=== PATIENT | female | born 1980 | race Caucasian/White ===

== ENCOUNTER 2020-12-10 16:30 | Emergency (ER) | payer SELFPAY ==
[~2020-12-10] VITALS: Ht 160 cm; Wt 95.4 kg
[2020-12-10 17:37] LABS: BASO # 0.1 x10^3/uL (0.0-0.2); BASO % 1 % (0-3); EOS # 0.3 x10^3/uL (0.0-0.7); EOS % 3 % (0-3); HEMATOCRIT 44.4 % (36.0-47.0); HEMOGLOBIN 15.2 g/dL (12.0-15.5); LYMPH # 3.3 x10^3/uL (1.0-4.8); LYMPH % 40 % (24-48); MEAN CORPUSCULAR HEMOGLOBIN 30 pg (25-35); MEAN CORPUSCULAR HGB CONC 34 g/dL (31-37); MEAN CORPUSCULAR VOLUME 88 fL (79-100); MONO # 0.9 x10^3/uL (0.0-1.1); MONO % 10 % (0-9); NEUT # 3.8 x10^3/uL (1.8-7.7); NEUT % 46 % (31-73); PLATELET COUNT 289 x10^3/uL (140-400); RED BLOOD COUNT 5.06 x10^6/uL (3.50-5.40); RED CELL DISTRIBUTION WIDTH 14.2 % (11.5-14.5); WHITE BLOOD COUNT 8.3 x10^3/uL (4.0-11.0)
--- NOTE | 2020-12-10 17:44 | RAD ---
EXAMINATION: Chest radiograph. VIEWS: Single view COMPARISON: None INDICATION:40 years, Female, chest pain. FINDINGS: Normal cardiomediastinal silhouette. No focal consolidation. No pleural effusion or pneumothorax. No acute osseous process. IMPRESSION: No acute cardiopulmonary process. Electronically signed by: Surendra Yancey MD (12/10/2020 5:42 PM) [facility]
[2020-12-10 17:52] LABS: CALCIUM 9.2 mg/dL (8.5-10.1); GFR 62.1; POTASSIUM 4.1 mmol/L (3.5-5.1)
[2020-12-10 17:57] LABS: ALBUMIN 3.8 g/dL (3.4-5.0); ALBUMIN/GLOBULIN RATIO 1.1 (1.0-1.7); MAGNESIUM 1.7 mg/dL (1.8-2.4); TOTAL BILIRUBIN 0.3 mg/dL (0.2-1.0); TOTAL PROTEIN 7.2 g/dL (6.4-8.2)
[2020-12-10] MEDS ORDERED: IV NORMAL SALINE 1000ML BAG 1,000 ML IV ONE (18:00)
[2020-12-10] MEDS ORDERED: fentaNYL PF VIAL 100 MCG/2 ML VIAL IVP ONE (18:00)
--- NOTE | 2020-12-10 19:11 | PHYS DOC ---
Past Medical History Additional Past Medical Histor: PCOS,PERICARDITIS Past Surgical History: No Surgical History Smoking Status: Never Smoker Alcohol Use: Occasionally General Adult EDM: Chief Complaint: CHEST PAIN HPI: HPI: Patient is a 40 year old female who presents with 2 weeks of bilateral jaw pain that is sharp and then it radiates down into her chest and her chest it feels very heavy. She states she also has a cough. She states she is not really doing anything all the ordinary when this occurs. She says it does not occur every day the last 2 weeks. She states that usually last about 20 to 30 minutes. She states she thought maybe it was just anxiety. Patient states she does have anxiety and depression of which she is on medication for. Currently rating her chest discomfort only at a 7 out of 10. She is not currently have any jaw pain. She denies headache, dizziness, nausea, vomiting, diarrhea, vision change, shortness of breath, fever, abdominal pain, injury, any heavy lifting, numbness or tingling. Patient has a history of PCOS also and pericarditis. Review of Systems: Review of Systems: Constitutional: Denies fever or chills. [] Eyes: Denies change in visual acuity. [] HENT: Denies nasal congestion or sore throat. + Bilateral jaw pain [] Respiratory: +cough or denies shortness of breath. [] Cardiovascular: + chest pain or denies edema. [] GI: Denies abdominal pain, nausea, vomiting, bloody stools or diarrhea. [] : Denies dysuria. [] Musculoskeletal: Denies back pain or joint pain. [] Integument: Denies rash. [] Neurologic: Denies headache, focal weakness or sensory changes. [] Endocrine: Denies polyuria or polydipsia. [] Lymphatic: Denies swollen glands. [] Psychiatric: Denies depression or anxiety. [] Heart Score: C/O Chest Pain: Yes HEART Score for Chest Pain: HEART Score for Chest Pain Response (Comments) Value History Slighlty/Non-Suspicious 0 ECG Nonspecific Repolarizatio 1 Age < 45 0 Risk Factors 1 or 2 Risk Factors 1 Troponin < Normal Limit 0 Total 2 Risk Factors: Risk Factors: DM, Current or recent (<one month) smoker, HTN, HLP, family history of CAD, obesity. Risk Scores: Score 0 - 3: 2.5% MACE over next 6 weeks - Discharge Home Score 4 - 6: 20.3% MACE over next 6 weeks - Admit for Clinical Observation Score 7 - 10: 72.7% MACE over next 6 weeks - Early Invasive Strategies Current Medications: Current Medications Medications (Trade) Dose Ordered Sig/Amrit Start Time Stop Time Status Last Admin Dose Admin Fentanyl Citrate (Fentanyl 2ml Vial) 50 mcg 1X ONCE 12/10/20 18:00 12/10/20 18:01 DC Sodium Chloride 1,000 ml @ 1,000 mls/hr 1X ONCE 12/10/20 18:00 12/10/20 18:59 Allergies: Allergies: Allergies Coded Allergies Type Severity Reaction Last Updated Verified amoxicillin Allergy Intermediate UNKNOWN 12/10/20 Yes Physical Exam: PE: Constitutional: Well developed, well nourished, no acute distress, non-toxic appearance. [] HENT: Normocephalic, atraumatic, bilateral external ears normal, oropharynx moist, no oral exudates, nose normal. [] Eyes: PERRLA, EOMI, conjunctiva normal, no discharge. [] Neck: Normal range of motion, no tenderness, supple, no stridor. [] Cardiovascular:Heart rate regular rhythm with inverted T waves, no murmur [] Lungs & Thorax: Bilateral breath sounds clear to auscultation [] Abdomen: Bowel sounds normal, soft, no tenderness, no masses, no pulsatile masses. [] Skin: Warm, dry, no erythema, no rash. [] Back: No tenderness, no CVA tenderness. [] Extremities: No tenderness, no cyanosis, no clubbing, ROM intact, no edema. [] Neurologic: Alert and oriented X 3, normal motor function, normal sensory function, no focal deficits noted. [] Psychologic: Affect normal, judgement normal, mood normal. [] Current Patient Data: Labs: Laboratory Tests Test 12/10/20 16:38 White Blood Count 8.3 x10^3/uL (4.0-11.0) Red Blood Count 5.06 x10^6/uL (3.50-5.40) Hemoglobin 15.2 g/dL (12.0-15.5) Hematocrit 44.4 % (36.0-47.0) Mean Corpuscular Volume 88 fL (79-100) Mean Corpuscular Hemoglobin 30 pg (25-35) Mean Corpuscular Hemoglobin Concent 34 g/dL (31-37) Red Cell Distribution Width 14.2 % (11.5-14.5) Platelet Count 289 x10^3/uL (140-400) Neutrophils (%) (Auto) 46 % (31-73) Lymphocytes (%) (Auto) 40 % (24-48) Monocytes (%) (Auto) 10 % (0-9) H Eosinophils (%) (Auto) 3 % (0-3) Basophils (%) (Auto) 1 % (0-3) Neutrophils # (Auto) 3.8 x10^3/uL (1.8-7.7) Lymphocytes # (Auto) 3.3 x10^3/uL (1.0-4.8) Monocytes # (Auto) 0.9 x10^3/uL (0.0-1.1) Eosinophils # (Auto) 0.3 x10^3/uL (0.0-0.7) Basophils # (Auto) 0.1 x10^3/uL (0.0-0.2) Sodium Level 140 mmol/L (136-145) Potassium Level 4.1 mmol/L (3.5-5.1) Chloride Level 103 mmol/L (98-107) Carbon Dioxide Level 24 mmol/L (21-32) Anion Gap 13 (6-14) Blood Urea Nitrogen 12 mg/dL (7-20) Creatinine 1.0 mg/dL (0.6-1.0) Estimated GFR (Cockcroft-Gault) 62.1 BUN/Creatinine Ratio 12 (6-20) Glucose Level 88 mg/dL (70-99) Calcium Level 9.2 mg/dL (8.5-10.1) Magnesium Level 1.7 mg/dL (1.8-2.4) L Total Bilirubin 0.3 mg/dL (0.2-1.0) Aspartate Amino Transferase (AST) 23 U/L (15-37) Alanine Aminotransferase (ALT) 34 U/L (14-59) Alkaline Phosphatase 57 U/L (46-116) Troponin I Quantitative < 0.017 ng/mL (0.000-0.055) UY-Dbj-M-Type Natriuretic Peptide 21 pg/mL (0-124) Total Protein 7.2 g/dL (6.4-8.2) Albumin 3.8 g/dL (3.4-5.0) Albumin/Globulin Ratio 1.1 (1.0-1.7) Lipase 200 U/L (73-393) Laboratory Tests 12/10/20 16:38 Laboratory Tests 12/10/20 16:38 Vital Signs: Vital Signs Date Time Temp Pulse Resp B/P (MAP) Pulse Ox O2 Delivery O2 Flow Rate FiO2 12/10/20 16:30 98.5 66 20 126/82 96 Room Air 98.5 EKG: EK and read by Dr. Tee as sinus rhythm with some inverted T waves in lead 2, lead 3, V4 V5 V2 V3 V6. No STEMI. [address] Calderon as sinus rhythm and no STEMI. Radiology/Procedures: Radiology/Procedures: [] Impression: [place] [id number] IMAGING REPORT Signed PATIENT: NO WALDEN ACCOUNT: [id number] : 1980 LOCATION: ER AGE: 40 SEX: F EXAM STATUS: PRE ER ORD. PHYSICIAN: TERA MATTHEW APRN REASON: chest pain PROCEDURE: PORTABLE CHEST 1V EXAMINATION: Chest radiograph. VIEWS: Single view COMPARISON: None INDICATION:40 years, Female, chest pain. FINDINGS: Normal cardiomediastinal silhouette. No focal consolidation. No pleural effusion or pneumothorax. No acute osseous process. IMPRESSION: No acute cardiopulmonary process. Electronically signed by: Larry Yancey MD (12/10/2020 5:42 PM) [facility] DICTATED and SIGNED BY: LARRY YANCEY MD DATE: 12/10/20 [id number] [address] [id number] IMAGING REPORT Signed PATIENT: NO WALDEN ACCOUNT: [id number] : 1980 LOCATION: ER AGE: 40 SEX: F EXAM STATUS: REG ER ORD. PHYSICIAN: TERA MATTHEW APRN REASON: pain with radiation, soa, AORTA/DISS STUDY INCLUDE NECK MUCH POSS PROCEDURE: CT ANGIOGRAPHY CHEST Examination: CT angiography chest thoracic aorta protocol History: Chest pain with radiation COMPARISON: None available TECHNIQUE: Axial CT angiographic images of chest were performed with IV contrast. Images also include portions of the neck. Coronal and sagittal 3-D MIP reformats are performed Exposure: One or more of the following individualized dose reduction techniques were utilized for this examination: 1. Automated exposure control 2. Adjustment of the mA and/or kV according to patient size 3. Use of iterative reconstruction technique FINDINGS: The central airways are patent. The origin of the great vessels from the arch of the aorta grossly appears unremarkable. Evaluation of the ascending aorta is somewhat limited due to mild motion artifact. Grossly no evidence of dissection flap. The visualized carotid arteries are patent.. The carotid arteries in the neck of the medial course in the pharyngeal region. Minimal atelectasis right middle lobe of the lung. Mild decreased attenuation noted in the liver likely hepatic steatosis. The spleen, adrenals grossly appears unremarkable. Mild degenerative cervical spine. IMPRESSION: 1. No obvious aortic dissection flap. Evaluation of the ascending aorta is somewhat limited by motion artifact. 2.Hepatic steatosis. Electronically signed by: Robin Ramirez MD (12/10/2020 9:43 PM) [id number] DICTATED and SIGNED BY: ROBIN RAMIREZ MD DATE: 12/10/20 [id number] 0 Course & Med Decision Making: Course & Med Decision Making Pertinent Labs and Imaging studies reviewed. (See chart for details) COVID-19 CRITERIA: The patient was evaluated during the global COVID-19 pandemic, and that diagnosis was suspected/considered upon their initial presentation. Their evaluation, treatment and testing was consistent with current guidelines for patients who present with complaints or symptoms that may be related to COVID-19. See HPI. Alert and oriented x4. Ambulatory steady gait. Speaks in full clear sentences. Lungs are clear all station all lobes. Vital signs within normal limits. Chest x-ray shows no acute findings. CT angios neck and chest show no acute findings. Blood work is unremarkable. She has had 2 negative EKGs and troponins. Patient to follow-up with her primary care provider. [] Dejon Disclaimer: Dejon Disclaimer: This electronic medical record was generated, in whole or in part, using a voice recognition dictation system. COVID-19 Patient Risks: Age 65 or older: No Sign of co-morbidity: Yes Exp to person + for COVID: No Exp to PUI: No Travel from affected area: No Lower respiratory symptoms: Yes Fever: No Other: Yes (cough, nausea, chest pain) PPE Use: Full PPE with N95 mask or PAPR: Yes Departure Departure Impression: Primary Impression: Chest pain at rest Additional Impression: Jaw pain Disposition: 01 HOME / SELF CARE / HOMELESS Condition: STABLE Patient Instructions: Chest Pain (Nonspecific) Additional Instructions: Follow-up with primary care provider. Continue taking all your medications as prescribed. The Covid test will be back by tomorrow or the next day. TERA MATTHEW APRN Dec 10, 2020 19:11
[2020-12-10] MEDS ORDERED: IOHEXOL 350 MG/ML 100 ML VIAL. IV ONE (20:00)
[2020-12-10 20:27] LABS: BILIRUBIN,URINE NEGATIVE (NEG); CLARITY,URINE CLOUDY; COLOR,URINE YELLOW; NITRITE,URINE NEGATIVE (NEG); PROTEIN,URINE NEGATIVE (NEG-TRACE); UROBILINOGEN,URINE 0.2 mg/dL (0.2 mg/dL)
[2020-12-10] MEDS ORDERED: CONTRAST GIVEN. MC PRN (20:30)
[2020-12-10 20:36] LABS: BARBITURATES NEG (NEG); BENZODIAZEPINES NEG (NEG); CANNABINOIDS POS (NEG); COCAINE NEG (NEG); METHADONE NEG (NEG); OPIATES NEG (NEG); PHENCYCLIDINE NEG (NEG)
[2020-12-10 20:38] LABS: AMPHETAMINE/METHAMPHETAMINE NEG (NEG)
[2020-12-10 20:49] LABS: BACTERIA,URINE MODERATE /HPF (0-FEW); RBC,URINE 0 /HPF (0-2)
--- NOTE | 2020-12-10 21:21 | EKG ---
[facility] [address] [place] [address] Test Date: 2020-12-10 Test Time: 16:37:22 Pat Name: NO WALDEN Department: Room: Gender: F [employer]ping [employer] Operator: : 1980 Requested By: TERA MATTHEW Order Number: [id number] Reading MD: Measurements Intervals [place] Rate: 69 P: 9 MT: 146 QRS: 2 QRSD: 82 T: -14 QT: 378 QTc: 406 Interpretive Statements No previous ECG available for comparison
--- NOTE | 2020-12-10 21:27 | EKG ---
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
[2020-12-10 21:42] VITALS: BP 141/90
--- NOTE | 2020-12-10 21:45 | RAD ---
Examination: CT angiography chest thoracic aorta protocol History: Chest pain with radiation COMPARISON: None available TECHNIQUE: Axial CT angiographic images of chest were performed with IV contrast. Images also include portions of the neck. Coronal and sagittal 3-D MIP reformats are performed Exposure: One or more of the following individualized dose reduction techniques were utilized for thi s examination: 1. Automated exposure control 2. Adjustment of the mA and/or kV according to patient size 3. Use of iterative reconstruction technique FINDINGS: The central airways are patent. The origin of the great vessels from the arch of the aorta grossly ap pears unremarkable. Evaluation of the ascending aorta is somewhat limited due to mild motion artifact . Grossly no evidence of dissection flap. The visualized carotid arteries are patent.. The carotid ar teries in the neck of the medial course in the pharyngeal region. Minimal atelectasis right middle lo be of the lung. Mild decreased attenuation noted in the liver likely hepatic steatosis. The spleen, a drenals grossly appears unremarkable. Mild degenerative cervical spine. IMPRESSION: 1. No obvious aortic dissection flap. Evaluation of the ascending aorta is somewhat limited by motio n artifact. 2.Hepatic steatosis. Electronically signed by: Robin Ramirez MD (12/10/2020 9:43 PM) [id number]
--- NOTE | 2020-12-12 13:44 | NUR ---
IP: Pt informed of negative covid test. Pt verbalized understanding.
== END 2020-12-10 22:14 | disposition home or self-care (01) ==
LOC: ER 16:30
DX: R07.89 Other chest pain (principal); Z20.822 Contact with and (suspected) exposure to COVID-19; R68.84 Jaw pain; Z88.1 Allergy status to other antibiotic agents
CPT/HCPCS: 36415; 71045; 71275; 80053; 80307; 81001; 81025; 83690; 83735; 83880; 84484; 85025; 87086; 93005; 96361; 96374; 99285; J3010; J7030; Q9967; U0003; U0005